=== PATIENT | female | born 1955 | race Caucasian/White ===

== ENCOUNTER 2018-01-30 06:59 | Day surgery (SDC) | payer BC ==
[~2018-01-30] VITALS: Ht 157.5 cm; Wt 111.1 kg
[~2018-01-30 06:59] MED LIST: ADVIL,NUPRIN,M200 MG PO; FOSAMAX70 MG PO; HYDROCHLOROTHIA25 MG PO; LASIX20 MG PO; PREMARIN0.625 MG PO; PROAIR HFA8.5 GM IH; SINGULAIR10 MG PO; ZOCOR20 MG PO
[2018-01-30 08:08] VITALS: BP 127/65
[2018-01-30] MEDS ORDERED: COLACE100 MG PO (10:26)
[2018-01-30] MEDS ORDERED: TRAMADOL HCL50 MG PO (10:26)
[2018-01-30] MEDS ORDERED: PROCTOCORT28.35 GM PR (10:26)
[2018-01-30 11:27] VITALS: BP 166/69
[2018-01-30 12:25] VITALS: BP 132/61
[2018-01-30 12:59] VITALS: BP 120/58
== END 2018-01-30 13:12 | disposition home or self-care (01) ==
LOC: SDC 06:59
DX: K62.1 Rectal polyp (principal); K64.8 Other hemorrhoids; K64.4 Residual hemorrhoidal skin tags; K57.30 Diverticulosis of large intestine without perforation or abscess without bleeding; F17.200 Nicotine dependence, unspecified, uncomplicated; I10 Essential (primary) hypertension; R60.0 Localized edema; E78.5 Hyperlipidemia, unspecified; Z80.8 Family history of malignant neoplasm of other organs or systems; Z68.41 Body mass index [BMI] 40.0-44.9, adult; Z88.5 Allergy status to narcotic agent; Z91.048 Other nonmedicinal substance allergy status
CPT/HCPCS: 88304; 88305; 93005; 94640; J0330; J1885; J2405; J2765; J3010; S0074